=== PATIENT | female | born 1970 | race American Indian/Alaskan Native ===

== ENCOUNTER 2017-11-30 00:13 | Inpatient (IN) | payer MEDICAID ==
--- NOTE | 2017-11-30 01:11 | Emergency Department Report ---
ED N/V/D HPI - General Chief complaint: Nausea/Vomiting/Diarrhea Stated complaint: ABDOMINAL PAIN Time Seen by Provider: 11/30/17 01:10 Source: family, EMS Mode of arrival: Stretcher Limitations: Physical Limitation (a fascia secondary to prior stroke) - History of Present Illness Initial comments: Disabled patient with past history of stroke and secondary aphasia, sent over from retirement for evaluation for having vomited blood earlier this evening, reportedly of large amount. Patient is stable on arrival with no active vomiting at this time. Patient is unable to meaningfully communicative, but she is awake and alert, and can nod yes or no to simple questions, but I am unable to communicate meaningfully further due to lack of verbal capabilities. Son is with patient, and reports that patient has no past history of gastrointestinal bleeding, and that she does not appear to be in any significant discomfort. 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 There is been no history of melena, further history is unavailable. No further vomiting was noted after the initial episode. -: This evening (to 3 hours prior to arrival) Description of Vomiting: bloody - Related Data Allergies Allergy/AdvReac Type Severity Reaction Status Date / Time No Known Allergies Allergy Verified 11/30/17 04:22 ED Review of Systems ROS: Stated complaint: ABDOMINAL PAIN Other details as noted in HPI ED Past Medical Hx - Past Medical History Previous Medical History?: Yes Hx CVA: Yes Hx Diabetes: Yes Hx Seizures: Yes - Surgical History Past Surgical History?: Yes Additional Surgical History: gastrostomy tube - Social History Smoking Status: Never Smoker Substance Use Type: None ED Physical Exam - General Limitations: Physical Limitation (prior stroke), Other (unable to communicate secondary to a fascia from stroke) General appearance: alert, in no apparent distress - Head Head exam: Present: atraumatic, normocephalic - Eye Eye exam: Present: normal appearance, PERRL - ENT ENT exam: Present: normal exam - Neck Neck exam: Present: normal inspection. Absent: tenderness - Respiratory Respiratory exam: Present: normal lung sounds bilaterally - Cardiovascular Cardiovascular Exam: Present: regular rate, normal heart sounds - GI/Abdominal GI/Abdominal exam: Present: soft. Absent: tenderness, guarding, rebound - Extremities Exam Extremities exam: Present: other (right hemiparesis secondary to stroke, mild chronic edema right upper extremity) - Neurological Exam Neurological exam: Present: alert, CN II-XII intact, motor sensory deficit ( hemiparesis, right upper extremity, right lower extremity) - Psychiatric Psychiatric exam: Present: other (unable to assess due to inability to speak) - Skin Skin exam: Present: warm, dry ED Course Vital Signs 11/30/17 11/30/17 11/30/17 00:41 00:48 01:00 Temperature 97.3 F L Pulse Rate 78 80 79 Respiratory 11 L 11 L Rate Blood Pressure 122/75 119/83 O2 Sat by Pulse 100 100 100 Oximetry - Reevaluation(s) Reevaluation #1: 11/30/17 04:20 Patient is stable on repeat examination, blood pressure is 107/73, heart rate is 60 and regular, oxygen saturations 100%, with lungs clear, abdomen soft, although patient not when asks if she is having discomfort. Bowel sounds are active, no rebound or guarding - Consultations Consultation #1: 11/30/17 04:25 Dr. Aden, hospitalist instructional media services technician consulted 0425 hrs. for admission, patient is stable, shows no signs of further bleeding, but will need gastroenterology consultation, given patient's lack of ability to participate in history and quantification of hematemesis. ED Medical Decision Making - Lab Data Result diagrams: 11/30/17 01:05 11/30/17 01:05 Critical Care Time: No Critical care attestation.: If time is entered above; I have spent that time in minutes in the direct care of this critically ill patient, excluding procedure time. ED Disposition Clinical Impression: Aphasia as late effect of cerebrovascular accident (CVA) Hematemesis Qualifiers: Nausea presence: unspecified Qualified Code(s): K92.0 - Hematemesis Disposition: DC-09 OP ADMIT IP TO THIS HOSP Is pt being admited?: Yes Does the pt Need Aspirin: No Condition: Stable Time of Disposition: 04:24
[2017-11-30 01:19] LABS: Basophils # (Auto) 0.1 K/mm3 (0.0-0.1); Basophils % (Auto) 1.4 % (0.0-1.8); Eosinophils # (Auto) 0.1 K/mm3 (0.0-0.4); Eosinophils % (Auto) 1.8 % (0.0-4.3); Hematocrit 33.3 % (30.3-42.9); Hemoglobin 11.1 gm/dl (10.1-14.3); Lymphocytes # (Auto) 0.8 K/mm3 (1.2-5.4); Lymphocytes % (Auto) 12.1 % (13.4-35.0); Mean Corpuscular HGB Conc 33 % (30-34); Mean Corpuscular Hemoglobin 28 pg (28-32); Mean Corpuscular Volume 83 fl (79-97); Monocytes # (Auto) 0.3 K/mm3 (0.0-0.8); Monocytes % (Auto) 4.2 % (0.0-7.3); Platelet Count 272 K/mm3 (140-440); Red Blood Count 4.03 M/mm3 (3.65-5.03)
[2017-11-30 01:37] LABS: Alanine Aminotransferase 18 units/L (7-56); Albumin 3.5 g/dL (3.9-5); BUN/Creatinine Ratio 38; Blood Urea Nitrogen 19 mg/dL (7-17); Calcium 9.4 mg/dL (8.4-10.2); Hemolysis Index 0
[2017-11-30 02:16] LABS: INR 0.96 (0.87-1.13)
[2017-11-30] MEDS ORDERED: PROTONIX IV ONE (04:22)
[2017-11-30] MEDS ORDERED: ZOFRAN IV PRN (05:28)
[2017-11-30] MEDS ORDERED: TYLENOL PO PRN (05:28)
[2017-11-30] MEDS ORDERED: SODIUM CHLORIDE FLUSH SYRINGE 10 ML IV PRN (05:28)
[2017-11-30 06:07] LABS: Hematocrit 34.1 % (30.3-42.9); Hemoglobin 11.3 gm/dl (10.1-14.3)
--- NOTE | 2017-11-30 06:12 | History and Physical Report ---
History of Present Illness Date of examination: 11/30/17 History of present illness: The 47-year-old woman with a history of diabetes, CVA with hemiparesis was sent to the emergency room from the [place] [facility] because they reported that she had a large amount of hematemesis. No hematemesis here in the emergency room, patient is unable to give a history/ son is at bedside, unable to have any further history. Review of system is unobtainable PAST MEDICAL HISTORY:diabetes, CVA with hemiparesis PAST SURGICAL HISTORY: PEG tube SOCIAL HISTORY:No alcohol, tobacco, drugs FAMILY HISTORY: Diabetes Medications and Allergies Allergies Allergy/AdvReac Type Severity Reaction Status Date / Time No Known Allergies Allergy Verified 11/30/17 04:22 Active Meds: Active Medications Acetaminophen (Tylenol) 650 mg PO Q4H PRN PRN Reason: Pain MILD(1-3)/Fever >100.5/HANLEY Ondansetron HCl (Zofran) 4 mg IV Q8H PRN PRN Reason: Nausea And Vomiting Sodium Chloride (Sodium Chloride Flush Syringe 10 Ml) 10 ml IV BID HESHAM Sodium Chloride (Sodium Chloride Flush Syringe 10 Ml) 10 ml IV PRN PRN PRN Reason: LINE FLUSH Exam - Physical Exam Narrative exam: Gen. appearance: Patient lying in bed, no apparent distress HEENT: Normocephalic, atraumatic, pupils equally round and reactive to light, extraocular movement intact, and no sclericterus,. No JVD or thyromegaly or nodule,neck supple, no carotid bruit ,mucous membranes moist, no exudate or erythema Heart: S1, S2, regular rate and rhythm Lungs: Clear to auscultation bilaterally, breathing comfortable Abdomen: Positive bowel sounds, nontender, nondistended, no organomegaly Extremity: No edema, cyanosis, clubbing Skin: No rash, nodules, warm, dry Neuro: Aphasic, hemiparesis - Constitutional Vitals: Temp Pulse Resp BP Pulse Ox 97.3 F L 79 11 L 119/83 100 11/30/17 00:48 11/30/17 01:00 11/30/17 01:00 11/30/17 01:00 11/30/17 01:00 Results - Labs CBC & Chem 7: 11/30/17 05:57 11/30/17 01:05 Labs: Abnormal lab results 11/30/17 11/30/17 Range/Units 01:05 01:05 Lymph % (Auto) 12.1 L (13.4-35.0) % Lymph # 0.8 L (1.2-5.4) K/mm3 Seg Neutrophils % 80.5 H (40.0-70.0) % BUN 19 H (7-17) mg/dL Creatinine 0.5 L (0.7-1.2) mg/dL Alkaline Phosphatase 142 H (35-129) units/L Albumin 3.5 L (3.9-5) g/dL Assessment and Plan Assessment Hematemesis History of CVA with hemiparesis Diabetes Plan Admit to medicine Check serial hemoglobin, consult GI Check fingersticks. IV fluid DVT prophylaxis
[2017-11-30] MEDS ORDERED: D50W (25GM) Syringe IV PRN (06:16)
[2017-11-30 09:30] LABS: Hematocrit 33.6 % (30.3-42.9); Hemoglobin 11.6 gm/dl (10.1-14.3)
[2017-11-30] MEDS: NACL 0.9% 1000 ML 1,000 ML IV SCH (10:08)
[2017-11-30] MEDS: PROTONIX IV SCH ×2 (10:08→21:34)
[2017-11-30] MEDS: SODIUM CHLORIDE FLUSH SYRINGE 10 ML IV SCH ×2 (10:09→21:34)
--- NOTE | 2017-11-30 11:00 | Gastroenterology Consultation ---
<MARIBEL FUNES - Last Filed: 11/30/17 11:09> History of Present Illness - Reason for Consult Consult date: 11/30/17 hematemesis Requesting physician: BESSY KATE - History of Present Illness Patient is a 47 y/o female with PMH of DM, CVA (with hemiparesis and aphasia), and seizures who was sent to ED from [facility] for hematemesis to which GI has been consulted. This morning pt was resting in bed w/o acute distress. She is alert and can nod her head yes/no to questions but is unable to provide history due to asphasia. History obtained via chart review and by speaking to pt 's sister ([phone]) over the phone. She has had no active signs of bleeding since admission per nursing. No hematemesis, melena, or hematochezia. No bloody residuals from PEG tube. No appearance of significant pain. According to family pt has no prior hx of GI bleeding, PUD, or liver disease. Past History Past Medical History: diabetes, seizures, stroke Past Surgical History: Other (PEG placement) Social history: other ([facility] resident). denies: smoking, alcohol abuse Family history: diabetes Medications and Allergies Allergies Allergy/AdvReac Type Severity Reaction Status Date / Time No Known Allergies Allergy Verified 11/30/17 04:22 Active Meds: Active Medications Acetaminophen (Tylenol) 650 mg PO Q4H PRN PRN Reason: Pain MILD(1-3)/Fever >100.5/HANLEY Dextrose (D50w (25gm) Syringe) 50 ml IV PRN PRN PRN Reason: Hypoglycemia Sodium Chloride (Nacl 0.9% 1000 Ml) 1,000 mls @ 75 mls/hr IV DIRECT [facility] Last Admin: 11/30/17 10:08 Dose: 75 mls/hr Ondansetron HCl (Zofran) 4 mg IV Q8H PRN PRN Reason: Nausea And Vomiting Pantoprazole Sodium (Protonix) 40 mg IV BID [facility] Last Admin: 11/30/17 10:08 Dose: 40 mg Sodium Chloride (Sodium Chloride Flush Syringe 10 Ml) 10 ml IV BID [facility] [place] Last Admin: 11/30/17 10:09 Dose: 10 ml Sodium Chloride (Sodium Chloride Flush Syringe 10 Ml) 10 ml IV PRN PRN PRN Reason: LINE FLUSH Review of Systems - Review of Systems ROS unobtainable: due to mental status (aphasia) Exam - Constitutional Vital Signs: Temp Pulse Resp BP Pulse Ox 97.5 F L 73 20 140/82 98 11/30/17 07:41 11/30/17 07:41 11/30/17 07:41 11/30/17 07:41 11/30/17 07:41 General appearance: no acute distress, other (non-verbal, alert) - Respiratory Respiratory: bilateral: CTA (anterior) - Cardiovascular Rhythm: regular Heart Sounds: Present: S1 & S2 - Gastrointestinal General gastrointestinal: Present: soft, non-distended, normal bowel sounds, other (+PEG) Rectal Exam: other (no rectal bleeding) - Neurologic Neurological: other (unable to assess) - Labs CBC & Chem 7: 11/30/17 09:15 11/30/17 01:05 Lab Results: Laboratory Results - last 24 hr 11/30/17 11/30/17 11/30/17 01:05 01:05 01:47 WBC 6.7 RBC 4.03 Hgb 11.1 Hct 33.3 MCV 83 MCH 28 MCHC 33 RDW 14.0 Plt Count 272 Lymph % (Auto) 12.1 L [place] % (Auto) 4.2 Eos % (Auto) 1.8 Baso % (Auto) 1.4 Lymph # 0.8 L [place] # 0.3 Eos # 0.1 Baso # 0.1 Seg Neutrophils % 80.5 H Seg Neutrophils # 5.4 PT INR Sodium 142 Potassium 4.3 Chloride 102.1 Carbon Dioxide 30 Anion Gap 14 BUN 19 H Creatinine 0.5 L Estimated GFR > 60 BUN/Creatinine Ratio 38 Glucose 99 Calcium 9.4 Total Bilirubin 0.80 AST 23 ALT 18 Alkaline Phosphatase 142 H Total Protein 6.7 Albumin 3.5 L Albumin/Globulin Ratio 1.1 Blood Type O POSITIVE Antibody Screen Negative 11/30/17 11/30/17 11/30/17 01:47 05:57 09:15 WBC RBC Hgb 11.3 11.6 Hct 34.1 33.6 MCV MCH MCHC RDW Plt Count Lymph % (Auto) [place] % (Auto) Eos % (Auto) Baso % (Auto) Lymph # [place] # Eos # Baso # Seg Neutrophils % Seg Neutrophils # PT 13.3 INR 0.96 Sodium Potassium Chloride Carbon Dioxide Anion Gap BUN Creatinine Estimated GFR BUN/Creatinine Ratio Glucose Calcium Total Bilirubin AST ALT Alkaline Phosphatase Total Protein Albumin Albumin/Globulin Ratio Blood Type Antibody Screen Assessment and Plan 1.hematemesis -HGB 11.6-stable -continue to monitor H/H and transfuse as needed -no active signs of bleeding -HD stable -etiology unclear -will schedule for EGD tomorrow (discussed procedure with pt's sister Vijaya with understanding voiced with consent given to proceed) -NPO after MN -continue PPI and supportive care -will follow <ALISHA NARANJO - Last Filed: 12/01/17 05:00> Medications and Allergies Active Meds: Active Medications Acetaminophen (Tylenol) 650 mg PO Q4H PRN PRN Reason: Pain MILD(1-3)/Fever >100.5/HANLEY Lipase/Protease/Amylase (Pancreaze Dr 10,500 Unit) 1 each FEEDTUBE PRN PRN PRN Reason: For Clogged Feeding Tube Dextrose (D50w (25gm) Syringe) 50 ml IV PRN PRN PRN Reason: Hypoglycemia Sodium Chloride (Nacl 0.9% 1000 Ml) 1,000 mls @ 75 mls/hr IV DIRECT [facility] Last Admin: 12/01/17 00:22 Dose: 75 mls/hr Ondansetron HCl (Zofran) 4 mg IV Q8H PRN PRN Reason: Nausea And Vomiting Pantoprazole Sodium (Protonix) 40 mg IV BID [facility] Last Admin: 11/30/17 21:34 Dose: 40 mg Simple Syrup (Simple Syrup) 15 ml FEEDTUBE PRN PRN PRN Reason: Hypoglycemia Simple Syrup (Simple Syrup) 30 ml FEEDTUBE PRN PRN PRN Reason: Hypoglycemia Sodium Bicarbonate (Sodium Bicarbonate) 325 mg FEEDTUBE PRN PRN PRN Reason: For Clogged Feeding Tube Sodium Chloride (Sodium Chloride Flush Syringe 10 Ml) 10 ml IV BID [facility] Last Admin: 11/30/17 21:34 Dose: 10 ml Sodium Chloride (Sodium Chloride Flush Syringe 10 Ml) 10 ml IV PRN PRN PRN Reason: LINE FLUSH Exam - Constitutional Vital Signs: Temp Pulse Resp BP Pulse Ox 98.0 F 76 20 146/65 99 11/30/17 21:08 11/30/17 22:00 11/30/17 22:00 05/03/18 21:08 11/30/17 21:08 - Labs CBC & Chem 7: 11/30/17 09:15 11/30/17 01:05 Lab Results: Laboratory Results - last 24 hr 11/30/17 11/30/17 11/30/17 05:57 09:15 12:30 Hgb 11.3 11.6 Hct 34.1 33.6 POC Glucose 88 11/30/17 11/30/17 11/30/17 18:17 21:18 23:46 Hgb Hct POC Glucose 90 80 93 Assessment and Plan pt seen and examined. agree with note above. Will plan for EGD tomorrow. Cont PPI.
[2017-11-30] MEDS ORDERED: SODIUM BICARBONATE FEEDTUBE PRN (14:37)
[2017-11-30] MEDS ORDERED: SIMPLE SYRUP FEEDTUBE PRN ×2 (14:37)
[2017-11-30] MEDS ORDERED: PANCREAZE DR 10,500 UNIT FEEDTUBE PRN (14:37)
--- NOTE | 2017-11-30 15:11 | Event Note ---
Date: 11/30/17 Patient seen and examined. Patient is a 47 y/o female with PMH of DM, CVA (with hemiparesis and aphasia),and seizures who was sent to ED from [facility] for hematemesis. GI has been consulted. Will cont current recommendation and plan as dictated in H and P.
[2017-11-30] MEDS ORDERED: APRESOLINE IV ONE (16:53)
[2017-12-01] MEDS: NACL 0.9% 1000 ML 1,000 ML IV SCH ×2 (00:22→15:22)
[2017-12-01 05:50] LABS: Basophils % (Auto) 0.2 % (0.0-1.8); Eosinophils # (Auto) 0.1 K/mm3 (0.0-0.4); Eosinophils % (Auto) 1.9 % (0.0-4.3); Hematocrit 33.2 % (30.3-42.9); Hemoglobin 11.5 gm/dl (10.1-14.3); Lymphocytes # (Auto) 1.2 K/mm3 (1.2-5.4); Mean Corpuscular HGB Conc 35 % (30-34); Mean Corpuscular Hemoglobin 29 pg (28-32); Mean Corpuscular Volume 82 fl (79-97); Monocytes # (Auto) 0.4 K/mm3 (0.0-0.8); Monocytes % (Auto) 5.6 % (0.0-7.3); Platelet Count 226 K/mm3 (140-440); Red Blood Count 4.03 M/mm3 (3.65-5.03); Red Cell Distribution Width 14.2 % (13.2-15.2)
[2017-12-01 06:27] LABS: BUN/Creatinine Ratio 32; Blood Urea Nitrogen 16 mg/dL (7-17); Calcium 9.4 mg/dL (8.4-10.2); Hemolysis Index 9
[2017-12-01] MEDS: PROTONIX IV SCH (12:26)
[2017-12-01] MEDS: SODIUM CHLORIDE FLUSH SYRINGE 10 ML IV SCH (12:26)
--- NOTE | 2017-12-01 15:31 | Anesthesia Consultation ---
Anesthesia Consult and Med Hx Date of service: 12/01/17 - Pulmonary Exam CTA: Yes - Cardiac Exam Cardiac Exam: RRR - Pre-Operative Health Status ASA Pre-Surgery Classification: ASA4 Proposed Anesthetic Plan: MAC - Pre-Anesthesia Comment Pre-Anesthesia Comments: unable to assess airway. CVA. no speech. non purposeful movement to left, SZ, DM, dysphagia, HTN, HX afib. - Cardiovascular System Hx Hypertension: Yes Hx Cardia Arrhythmia: Yes (chronic afib ) - Central Nervous System Hx Seizures: Yes CVA: Yes - Endocrine Hx Non-Insulin Dependent Diabetes: Yes
--- NOTE | 2017-12-01 15:34 | Anesthesia Day of Surgery ---
Anesthesia Day of Surgery - Day of Surgery Patient Examined: Yes Patient H&P Reviewed: Yes Patient is NPO: Yes
[2017-12-01] MEDS ORDERED: DIPRIVAN 10 MG/ML IV ONE (16:09)
[2017-12-01] MEDS ORDERED: WATER FOR IRRIG STERILE IR ONE ×2 (16:21→16:30)
--- NOTE | 2017-12-01 16:46 | Post Operative Note ---
Date of procedure: 12/01/17 Pre-op diagnosis: UGI bleed Post-op diagnosis: same (GE junction mirza alcides tears with visible vessel and active bleeding s/p clip and bicap) Findings: EGD: 1. Multiple MWT at GE junction. One with visible vessel and active bleeding during procedure. hemostasis achieved following clip placement and gold probe. 2. Hiatal hernia 3. Mild duodenitis Procedure: EGD with control of bleeding Anesthesia: MAC Surgeon: ALISHA NARANJO Estimated blood loss: 50-100ml Pathology: none Condition: stable Disposition: other (floor, with low threshold for ICU transfer for any HD changes or further bleeding signs.)
--- NOTE | 2017-12-01 17:03 | Progress Note ---
Assessment and Plan Acute GI bleed with hematemesis - Monitor H&H, hemoglobin currently stable -Continue IV fluid, on hold tube feeding - GI consulted, EGD today History of CVA with hemiparesis - Continue supportive care, monitor clinically Diabetes mellitus type II - Monitor blood glucose with fingersticks before every meal C at bedtime along with sliding scale of insulin History of seizure - Continue home medications when list available, for now Ativan when necessary DVT prophylaxis, with SCD Brief history: Patient is a 47 y/o female with PMH of DM, CVA (with hemiparesis and aphasia), and seizures who was sent to ED from [facility] for hematemesis Radiological test: None Hospitalist Physical exam: Gen. appearance: Patient lying in bed, no apparent distress HEENT: Normocephalic, atraumatic, pupils equally round and reactive to light, and no sclericterus,. No JVD or thyromegaly or nodule Heart: S1, S2, regular rate and rhythm Lungs: Clear to auscultation bilaterally, breathing comfortable Abdomen: Positive bowel sounds, nontender, nondistended, no organomegaly Extremity: No edema, cyanosis, clubbing Skin: No rash, nodules, warm, dry Neuro: Aphasic, hemiparesis Subjective Date of service: 12/01/17 Interval history: Patient seen and examined 10. After midnight, plan for EGD today Objective - Constitutional Vitals: Vital Signs - 12hr 12/01/17 12/01/17 12/01/17 07:29 14:40 15:20 Temperature 97.8 F 98.4 F 98.4 F Pulse Rate 82 83 88 Respiratory 20 14 14 Rate Blood Pressure 158/85 158/73 158/73 O2 Sat by Pulse 99 100 100 Oximetry - Labs CBC & Chem 7: 12/01/17 05:10 12/01/17 05:10 Labs: Abnormal lab results 12/01/17 12/01/17 Range/Units 05:10 05:10 MCHC 35 H (30-34) % Seg Neutrophils % 75.3 H (40.0-70.0) % Creatinine 0.5 L (0.7-1.2) mg/dL
--- NOTE | 2017-12-01 17:14 | Operative Report ---
Operative Report Operative Report: Esophagogastroduodenoscopy Procedure Note with control of bleeding Date of procedure: 12/01/2017 Endoscopist: Agustín Adkins Pre-op diagnosis: Upper GI bleed Post-op diagnosis: Ulcerated GE junction with visible vessel and active bleeding treated with clip and gold probe Anesthesia: MAC Complications: No immediate complications Estimated blood loss: ~ 50 cc Procedure: After consent was obtained from the patient's sister over the phone , the patient was placed in the left lateral decubitus position. The fujinon endoscope was inserted into the patient's mouth under direct vision, and advanced to the 2nd portion of duodenum without difficulty. The patient tolerated the procedure fairly well. The views of the mucosa were good. Patient's vital signs were monitored continuously throughout the procedure. Findings: There were multiple linear ulcerations (possible mirza alcides tears) at GE junction. One lesion had a visible vessel which was actively bleeding during the procedure. The lesion was treated with one endoclip and gold probe with hemostasis achieved. Moderate sized hiatal hernia Mild erythematous mucosa in the gastric body and antrum. The internal bumper of peg tube was seen along the anterior wall of the stomach. Otherwise, the stomach appeared normal. Erythematous mucosa in the duodenal bulb, otherwise the duodenum appeared normal. Impression: 1. Linear ulcerations at GE junction with bleeding stigmata and active bleeding treated with endoclip and gold probe. No active bleeding seen at end of procedure. 2. Moderate sized hiatal hernia 3. Gastritis and duodenitis Recommendations: -start IV PPI drip -keep NPO today, will determine timing to initiate feedings again based on clinical course -trend H/H -no NG tube -low threshold for ICU transfer (if any hemodynamic changes or signs of active bleeding) -discussed with patient's sister over the phone (Vijaya [phone]) and with primary team regarding findings and plan
[2017-12-01] MEDS ORDERED: PROTONIX 80 MG in NACL 0.9% 100 ML IV SCH (17:42)
[2017-12-01] MEDS ORDERED: D5/0.45NS 1,000 ML IV SCH (18:00)
[2017-12-01] MEDS ORDERED: VASELINE LIP THERAPY TP PRN (21:53)
[2017-12-02] MEDS: SODIUM CHLORIDE FLUSH SYRINGE 10 ML IV SCH ×3 (02:02→22:35)
--- NOTE | 2017-12-02 09:24 | Gastroenterology Progress Note ---
Assessment and Plan - Patient Problems (1) Amy-Mancilla tear Current Visit: Yes Status: Acute Plan to address problem: S/p UGI bleeding. No bleeding overnight. OK to restart tube feeds. Will s/o and f/u PRN. Thank you. (2) Hematemesis Current Visit: Yes Status: Acute Qualifiers: Nausea presence: unspecified Qualified Code(s): K92.0 - Hematemesis Subjective Date of service: 12/02/17 Principal diagnosis: UGI bleed Interval history: The patient denies vomiting or discomfort. Objective - Constitutional Vitals: Temp Pulse Resp BP Pulse Ox 98.8 F 82 20 97/45 97 12/02/17 07:00 12/02/17 07:00 12/02/17 07:00 12/02/17 07:00 12/02/17 07:00 General appearance: no acute distress - EENT ENT: hearing intact, clear oral mucosa - Respiratory Respiratory effort: normal Respiratory: bilateral: CTA - Cardiovascular Rhythm: regular - Extremities Extremities: pulses intact, No edema, normal color, Full ROM - Gastrointestinal General gastrointestinal: Present: soft, non-tender, non-distended, other (G tube site clean and dry.) - Neurologic Neurological: right side weakness - Labs CBC & Chem 7: 12/01/17 05:10 12/01/17 05:10 Labs: Laboratory Results - last 24 hr 12/01/17 12/01/17 12/01/17 12:14 15:30 16:47 POC Glucose 79 86 HCG, Qual Negative 12/01/17 12/01/17 12/02/17 17:33 21:54 06:33 POC Glucose 73 82 73 HCG, Qual
[2017-12-02] MEDS ORDERED: PANCREAZE DR 10,500 UNIT FEEDTUBE PRN (12:14)
[2017-12-02] MEDS ORDERED: SODIUM BICARBONATE FEEDTUBE PRN (12:14)
[2017-12-02] MEDS ORDERED: SIMPLE SYRUP FEEDTUBE PRN ×2 (12:14)
--- NOTE | 2017-12-02 12:16 | Progress Note ---
Assessment and Plan Acute GI bleed with hematemesis - Monitor H&H, hemoglobin currently stable - GI consulted, s/p EGD showed mellory hubbard tear with banding -Continue IV fluid, resume TF History of CVA with right hemiparesis and aphasia - Continue supportive care, monitor clinically Diabetes mellitus type II - Monitor blood glucose with fingersticks before every meal and at bedtime along with sliding scale of insulin History of seizure - Continue home medications when list available, for now Ativan when necessary DVT prophylaxis, with SCD Brief history: Patient is a 47 y/o female with PMH of DM, CVA (with hemiparesis and aphasia), and seizures who was [facility] ED [facility] for [facility]esis Radiological test: None Hospitalist Physical exam: Gen. appearance: Patient lying in bed, no apparent distress HEENT: Normocephalic, atraumatic, pupils equally round and reactive to light, and no sclericterus,. No JVD or thyromegaly or nodule Heart: S1, S2, regular rate and rhythm Lungs: Clear to auscultation bilaterally, breathing comfortable Abdomen: Positive bowel sounds, nontender, nondistended, no organomegaly Extremity: No edema, cyanosis, clubbing Skin: No rash, nodules, warm, dry Neuro: Aphasic, right hemiparesis Subjective Date of service: 12/02/17 Principal diagnosis: UGI bleed Interval history: Patient seen and examined discussed with GI and patient's family about plan of care No new issue Objective - Constitutional Vitals: Vital Signs - 12hr 12/02/17 07:00 Temperature 98.8 F Pulse Rate 82 Respiratory 20 Rate Blood Pressure 97/45 [Left] O2 Sat by Pulse 97 Oximetry - Labs CBC & Chem 7: 12/01/17 05:10 12/01/17 05:10
[2017-12-02] MEDS ORDERED: PROTONIX IV SCH (22:00)
[2017-12-03] MEDS ORDERED: PROTONIX PO SCH (11:00)
[2017-12-03] MEDS ORDERED: ATIVAN IV PRN (13:23)
--- NOTE | 2017-12-03 13:24 | Progress Note ---
Assessment and Plan Acute GI bleed with hematemesis - Monitor H&H, hemoglobin currently stable - GI consulted, s/p EGD showed mellory hubbard tear with banding -Continue IV fluid, resume TF History of CVA with right hemiparesis and aphasia - Continue supportive care, monitor clinically Diabetes mellitus type II - Monitor blood glucose with fingersticks before every meal and at bedtime along with sliding scale of insulin History of seizure - Continue home medications when list available, for now Ativan when necessary DVT prophylaxis, with SCD Brief history: Patient is a 47 y/o female with PMH of DM, CVA (with hemiparesis and aphasia), and seizures who was sent to ED from [facility] for hematemesis Radiological test: None Hospitalist Physical exam: Gen. appearance: Patient lying in bed, no apparent distress HEENT: Normocephalic, atraumatic, pupils equally round and reactive to light, and no sclericterus,. No JVD or thyromegaly or nodule Heart: S1, S2, regular rate and rhythm Lungs: Clear to auscultation bilaterally, breathing comfortable Abdomen: Positive bowel sounds, nontender, nondistended, no organomegaly Extremity: No edema, cyanosis, clubbing Skin: No rash, nodules, warm, dry Neuro: Aphasic, right hemiparesis Subjective Date of service: 12/03/17 Principal diagnosis: UGI bleed Interval history: Patient seen and examined discussed with GI and patient's family about plan of care No new issue Objective - Constitutional Vitals: Vital Signs - 12hr 12/03/17 07:40 Temperature 98.8 F Pulse Rate 86 Respiratory 20 Rate Blood Pressure 167/93 O2 Sat by Pulse 97 Oximetry - Labs CBC & Chem 7: 12/01/17 05:10 12/01/17 05:10 Labs: Abnormal lab results 12/03/17 12/03/17 Range/Units 00:21 06:22 POC Glucose 132 H 152 H (70-105)
[2017-12-03] MEDS: SODIUM CHLORIDE FLUSH SYRINGE 10 ML IV SCH (14:47)
[2017-12-03 17:23] VITALS: BP 153/82
--- NOTE | 2017-12-03 18:44 | Discharge Summary ---
Providers - Providers Date of Admission: 11/30/17 05:28 Date of discharge: 12/03/17 Attending physician: KARMEN TIMMONS 11/30/17 05:28 Consult to Physician [CONS] Routine Comment: Consulting Provider: CHRISTIAN CESAR Physician Instructions: Reason For Exam: hematemesis 11/30/17 10:02 Physical Therapy Evaluation and Treat [CONS] Routine Comment: Reason For Exam: Right sided weakness 11/30/17 10:05 Consult to Dietitian/Nutrition [CONS] Routine Physician Instructions: Reason For Exam: Reason for Consult: Write/Manage Tube Feeding 12/02/17 12:14 Consult to Dietitian/Nutrition [CONS] Routine Physician Instructions: Assess nutrtn needs, initiate, modify, manage TF Reason For Exam: Reason for Consult: Write/Manage Tube Feeding Reason for Consult: Write/Manage Tube Feeding Primary care physician: RADHAMES SANTIAGO Hospitalization Condition: Stable Hospital course: Acute GI bleed with hematemesis - Monitor H&H, hemoglobin currently stable - GI consulted, s/p EGD showed mellory hubbard tear with banding -Continue IV fluid, resume TF History of CVA with right hemiparesis and aphasia - Continue supportive care, monitor clinically Diabetes mellitus type II - Monitor blood glucose with fingersticks before every meal and at bedtime along with sliding scale of insulin History of seizure - Continue home medications when list available, for now Ativan when necessary DVT prophylaxis, with SCD Brief history: Patient is a 47 y/o female with PMH of DM, CVA (with hemiparesis and aphasia), and seizures who was sent to ED from [facility] for hematemesis Radiological test: None Hospitalist Physical exam: Gen. appearance: Patient lying in bed, no apparent distress HEENT: Normocephalic, atraumatic, pupils equally round and reactive to light, and no sclericterus,. No JVD or thyromegaly or nodule Heart: S1, S2, regular rate and rhythm Lungs: Clear to auscultation bilaterally, breathing comfortable Abdomen: Positive bowel sounds, nontender, nondistended, no organomegaly Extremity: No edema, cyanosis, clubbing Skin: No rash, nodules, warm, dry Neuro: Aphasic, right hemiparesis Disposition: DC[facility]-[facility] Time spent for discharge: 34 minutes Core Measure Documentation - Palliative Care Palliative Care/ Comfort Measures: Not Applicable - Core Measures Any of the following diagnoses?: history only Exam - Constitutional Vitals: Temp Pulse Resp BP Pulse Ox 99.2 F 78 18 153/82 98 12/03/17 17:18 12/03/17 17:18 12/03/17 17:18 12/03/17 17:18 12/03/17 17:18 Plan Activity: up only with assistance Diet: per dietitian instruction (Tube feeding) Follow up with: RADHAMES SANTIAGO MD [Primary Care Provider] - 7 Days Prescriptions: Pantoprazole [Protonix] 40 mg PO BID #60 tablet
--- NOTE | 2017-12-03 18:45 | Discharge Summary ---
Providers - Providers Date of Admission: 11/30/17 05:28 Date of discharge: 12/03/17 Attending physician: KARMEN TIMMONS 11/30/17 05:28 Consult to Physician [CONS] Routine Comment: Consulting Provider: CHRISTIAN CESAR Physician Instructions: Reason For Exam: hematemesis 11/30/17 10:02 Physical Therapy Evaluation and Treat [CONS] Routine Comment: Reason For Exam: Right sided weakness 11/30/17 10:05 Consult to Dietitian/Nutrition [CONS] Routine Physician Instructions: Reason For Exam: Reason for Consult: Write/Manage Tube Feeding 12/02/17 12:14 Consult to Dietitian/Nutrition [CONS] Routine Physician Instructions: Assess nutrtn needs, initiate, modify, manage TF Reason For Exam: Reason for Consult: Write/Manage Tube Feeding Reason for Consult: Write/Manage Tube Feeding Primary care physician: RADHAMES SANTIAGO Hospitalization Condition: Stable Hospital course: Acute GI bleed with hematemesis - Monitor H&H, hemoglobin currently stable - GI consulted, s/p EGD showed mellory hubbard tear with banding -Continue IV fluid, resume TF History of CVA with right hemiparesis and aphasia - Continue supportive care, monitor clinically Diabetes mellitus type II - Monitor blood glucose with fingersticks before every meal and at bedtime along with sliding scale of insulin History of seizure - Continue home medications when list available, for now Ativan when necessary DVT prophylaxis, with SCD Brief history: Patient is a 47 y/o female with PMH of DM, CVA (with hemiparesis and aphasia), and seizures who was sent to ED from care home for hematemesis Radiological test: None Hospitalist Physical exam: Gen. appearance: Patient lying in bed, no apparent distress HEENT: Normocephalic, atraumatic, pupils equally round and reactive to light, and no sclericterus,. No JVD or thyromegaly or nodule Heart: S1, S2, regular rate and rhythm Lungs: Clear to auscultation bilaterally, breathing comfortable Abdomen: Positive bowel sounds, nontender, nondistended, no organomegaly Extremity: No edema, cyanosis, clubbing Skin: No rash, nodules, warm, dry Neuro: Aphasic, right hemiparesis Disposition: [facility] Core Measure Documentation - Palliative Care Palliative Care/ Comfort Measures: Not Applicable Exam - Constitutional Vitals: Temp Pulse Resp BP Pulse Ox 99.2 F 78 18 153/82 98 12/03/17 17:18 12/03/17 17:18 12/03/17 17:18 12/03/17 17:18 12/03/17 17:18 Plan Follow up with: RADHAMES SANTIAGO MD [Primary Care Provider] - 7 Days Prescriptions: Pantoprazole [Protonix] 40 mg PO BID #60 tablet
== END 2017-12-03 18:45 | disposition home or self-care (01) | DRG 369 ==
LOC: ED 00:13 → 3A 05:28
PROVIDERS: ADMIT Internal Medicine; ATTEND Internal Medicine
PROC: 0W3P8ZZ Control Bleeding in Gastrointestinal Tract, Via Natural or Artificial Opening Endoscopic (ICD-10-PCS; principal; 2017-12-01)
DX: K22.6 Gastro-esophageal laceration-hemorrhage syndrome (principal); I69.351 Hemiplegia and hemiparesis following cerebral infarction affecting right dominant side; K25.4 Chronic or unspecified gastric ulcer with hemorrhage; E11.9 Type 2 diabetes mellitus without complications; K44.9 Diaphragmatic hernia without obstruction or gangrene; K29.90 Gastroduodenitis, unspecified, without bleeding; Z83.3 Family history of diabetes mellitus; Z93.1 Gastrostomy status; I69.320 Aphasia following cerebral infarction
CPT/HCPCS: 36415; 80048; 80053; 82962; 84703; 85014; 85018; 85025; 85610; 86850; 86900; 86901; 93005; 93010; C9113; J0360; J2704; J7030